=== PATIENT | male | born 1975 | race Caucasian/White ===

== ENCOUNTER 2024-05-22 21:45 | Emergency (ER) | payer OTHER ==
[~2024-05-22] VITALS: Ht 180.3 cm; Wt 79.4 kg
== END 2024-05-22 22:05 | disposition home or self-care (01) ==
LOC: ER 21:45
DX: S86.012A Strain of left Achilles tendon, initial encounter (principal); W19.XXXA Unspecified fall, initial encounter
CPT/HCPCS: 99282